=== PATIENT | female | born 1975 | race American Indian/Alaskan Native ===

== ENCOUNTER 2016-07-18 13:41 | Emergency (ER) | payer OTHER ==
[2016-07-18 13:53] VITALS: BP 111/66
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
== END 2016-07-18 15:31 | disposition left against medical advice (07) ==
LOC: ED 13:41
DX: M25.562 Pain in left knee (principal); R07.89 Other chest pain; M54.2 Cervicalgia; F17.200 Nicotine dependence, unspecified, uncomplicated; V49.49XA Driver injured in collision with other motor vehicles in traffic accident, initial encounter; W22.10XA Striking against or struck by unspecified automobile airbag, initial encounter; Y93.89 Activity, other specified; Y99.8 Other external cause status; Y92.89 Other specified places as the place of occurrence of the external cause
CPT/HCPCS: 93005; 93010; 99283